=== PATIENT | female | born 1995 | race Caucasian/White ===

== ENCOUNTER 2019-12-03 19:36 | Emergency (ER) | payer OTHER ==
[~2019-12-03] VITALS: Ht 160 cm; Wt 70.8 kg
[~2019-12-03 19:36] MED LIST: CYCLOBENZAPRINE10 MG
== END 2019-12-04 00:48 | disposition home or self-care (01) ==
LOC: ED 19:36
DX: R06.00 Dyspnea, unspecified (principal); F17.200 Nicotine dependence, unspecified, uncomplicated
CPT/HCPCS: 99284; C9803; U0002